=== PATIENT | female | born 1940 | race Caucasian/White ===

== ENCOUNTER 2017-07-22 00:20 | Emergency (ER) | payer OTHER, MEDICAID ==
[~2017-07-22] VITALS: Ht 154.9 cm; Wt 59.9 kg
[2017-07-22 00:27] VITALS: Ht 154.9 cm; Wt 59.9 kg
[2017-07-22 07:46] VITALS: BP 145/79
== END 2017-07-22 07:46 | disposition home or self-care (01) ==
LOC: ED 00:20
DX: S13.4XXA Sprain of ligaments of cervical spine, initial encounter (principal); S23.3XXA Sprain of ligaments of thoracic spine, initial encounter; S00.03XA Contusion of scalp, initial encounter; I10 Essential (primary) hypertension; W18.30XA Fall on same level, unspecified, initial encounter; Y93.84 Activity, sleeping; Y99.8 Other external cause status; Y92.003 Bedroom of unspecified non-institutional (private) residence as the place of occurrence of the external cause
CPT/HCPCS: 90715; J1885; J2270